=== PATIENT | female | born 1980 | race Caucasian/White ===

== ENCOUNTER 2022-07-09 14:11 | Outpatient (CLI) | payer OTHER, SELFPAY ==
[2022-07-09 23:06] LABS: HIV 1/2/P24 Combo Screen* Negative (Negative)
[2022-07-09 23:11] LABS: Hepatitis C Virus Antibody* Negative (Negative)
[2022-07-09 23:40] LABS: Chlamydia DNA Amplified* NOT DETECTED (No Detected); GC DNA Amplified* NOT DETECTED (No Detected)
[2022-07-11 20:36] LABS: Rapid Plasma Reagin (RPR) Non Reactive (Non Reactive)
== END 2022-07-09 14:12 | disposition home or self-care (01) ==
PROVIDERS: PCP Family Medicine; Visit Provider Family Medicine
DX: Z11.3 Encounter for screening for infections with a predominantly sexual mode of transmission (principal); Z11.59 Encounter for screening for other viral diseases
CPT/HCPCS: 86592; 86703; 86803; 87491; 87591

== ENCOUNTER 2022-12-15 07:04 | Outpatient (CLI) | payer OTHER, SELFPAY ==
--- NOTE | 2022-12-15 07:15 | CRLHL7_ITS ---
For Patients: As a result of the Century Cures Act, medical imaging exams and procedure reports are released immediately into your electronic medical record. You may view this report before your referring provider. If you have questions, please contact your health care provider. INDICATION: Cystic lesion pancreas; followup. Comparison: Ultrasound examination of the abdomen October 27, 2021; CT abdomen and pelvis November 12, 2021; MRCP and MR of the abdomen November 27, 2021. TECHNIQUE: MRCP; precontrast T1 and T2 weighted imaging; T2 haste imaging; diffusion weighted imaging; in and out of phase imaging; postcontrast imaging including subtraction. 15 cc of Dotarem contrast was injected FINDINGS: A 3 mm cystic lesion tail of the pancreas slice 19 series 6. No evidence of pancreatic ductal dilatation. No peripancreatic inflammatory changes. Gallbladder is unremarkable. A 1.9 cm cavernous hemangioma at the junction of segments 4 and 8 of the liver slice 21 series 14; stable. No focal hepatic or splenic pathology. No adrenal pathology. Kidneys are unremarkable. IMPRESSION: 1. A 1.9 cm cavernous hemangioma right hepatic lobe; stable. 2. 3 mm cystic lesion tail of the pancreas; rule out side branch IPMN; stable when compared to November 2021; followup MRCP and MRI of the abdomen and 2 years duration suggested. Dictated by John Figueroa MD @ 12/19/2022 2:14:48 PM (Electronically Signed)
== END 2022-12-15 07:05 | disposition home or self-care (01) ==
LOC: MRI 07:05
PROVIDERS: PCP Family Medicine; Visit Provider Surgery
DX: D49.0 Neoplasm of unspecified behavior of digestive system (principal); K86.2 Cyst of pancreas; D18.09 Hemangioma of other sites
CPT/HCPCS: 74183; A9575

== ENCOUNTER 2023-06-02 15:41 | Outpatient (CLI) | payer OTHER, SELFPAY ==
--- NOTE | 2023-06-02 16:00 | CRLHL7_ITS ---
For Patients: As a result of the Century Cures Act, medical imaging exams and procedure reports are released immediately into your electronic medical record. You may view this report before your referring provider. If you have questions, please contact your health care provider. INDICATION: POSTCOITAL BLEEDING AND CONTACT BLEEDING COMPARISON: none TECHNIQUE: 2D rich scale and color Doppler images were acquired of the pelvis using a transabdominal and transvaginal approach. FINDINGS: Sonographic images demonstrate a normal size and smooth outer contour of the uterus. Uterus measures 7.3 cm in length by 2.6 cm in AP diameter by 4.1 cm in transverse dimension. The myometrium has a normal uniform echotexture. Intrauterine device is present in good position within the endometrial canal. The right ovary measures 3.5 x 1.8 x 2.3 cm in size and the left ovary measures 2.9 x 1.7 x 1.2 cm. The ovaries demonstrate normal arterial and venous blood flow on color Doppler analysis. There are no suspicious fluid collections within the cul-de-sac. Simple right ovarian cyst is present measuring 2.5 x 2.0 x 2.1 cm. IMPRESSION: Normal position of the IUD. Incidental simple right ovarian cyst measuring 2.5 cm. No uterine fibroid. Dictated by Kyler Bautista MD @ 06/03/2023 8:53:04 AM (Electronically Signed)
== END 2023-06-02 15:42 | disposition home or self-care (01) ==
LOC: US 15:43
PROVIDERS: PCP Family Medicine; Visit Provider Advanced Practice Midwife
DX: N93.0 Postcoital and contact bleeding (principal)
CPT/HCPCS: 76830; 76856

== ENCOUNTER 2023-09-02 08:11 | Outpatient (CLI) | payer OTHER, SELFPAY ==
--- NOTE | 2023-09-02 08:15 | CRLHL7_ITS ---
For Patients: As a result of the Century Cures Act, medical imaging exams and procedure reports are released immediately into your electronic medical record. You may view this report before your referring provider. If you have questions, please contact your health care provider. BILATERAL SCREENING MAMMOGRAM WITH COMPUTER-AIDED DETECTION AND TOMOSYNTHESIS TECHNIQUE: CC and MLO views were obtained. These mammographic images have been obtained using full-field digital technique. These mammographic images were interpreted with the benefit of computer-aided detection. Breast Tomosynthesis was used in this interpretation. COMPARISON FILM: 09/08/20. FINDINGS: The breasts are heterogeneously dense, which may obscure small masses IMPRESSION: There is no radiographic evidence for malignancy. ASSESSMENT: BI-RADS Category 1: Negative RECOMMENDATION: Routine screening mammogram in 1 year. A lay language report of this examination will be provided to the patient. Kyler Bautsita M.D. Diagnostic Radiologist [email or web address] Transcribed: 4:37 p.mLiam wong/Dictated by: Kyler Bautista MD @ 09/07/2023 12:17:00 PM (Electronically Signed)
== END 2023-09-02 08:12 | disposition home or self-care (01) ==
LOC: MAMMO 08:12
PROVIDERS: PCP Family Medicine; Visit Provider Advanced Practice Midwife
DX: Z12.31 Encounter for screening mammogram for malignant neoplasm of breast (principal); R92.2 Inconclusive mammogram
CPT/HCPCS: 77063; 77067

== ENCOUNTER 2023-10-06 15:21 | Outpatient (CLI) | payer OTHER, SELFPAY | END 2023-10-06 15:22 | disposition home or self-care (01) | PROVIDERS: PCP Family Medicine; Visit Provider Family Medicine | DX: R63.1 Polydipsia (principal); R53.83 Other fatigue; E78.2 Mixed hyperlipidemia | CPT/HCPCS: 80053; 80061; 84443 ==

== ENCOUNTER 2024-09-20 13:08 | Outpatient (CLI) | payer OTHER, SELFPAY | END 2024-09-20 13:09 | disposition home or self-care (01) | PROVIDERS: PCP Family Medicine; Visit Provider Family Medicine | DX: E78.5 Hyperlipidemia, unspecified (principal); F41.9 Anxiety disorder, unspecified | CPT/HCPCS: 80053; 80061; 84443 ==

== ENCOUNTER 2025-01-02 11:19 | Outpatient (CLI) | payer OTHER, SELFPAY ==
--- NOTE | 2025-01-02 11:30 | CRLHL7_ITS ---
For Patients: As a result of the Century Cures Act, medical imaging exams and procedure reports are released immediately into your electronic medical record. You may view this report before your referring provider. If you have questions, please contact your health care provider. INDICATION: BILATERAL SCREENING MAMMOGRAM, ASYMPTOMATIC 44 Y/O FEMALE COMPARISON: 09/02/2023, 09/08/2020 TECHNIQUE: Digital mammogram in CC and MLO projections including computer-aided detection (CAD) and tomosynthesis. BREAST COMPOSITION: The breasts are heterogeneously dense, which may obscure small masses. FINDINGS: No suspicious findings. ASSESSMENT: BI-RADS 1 Negative RECOMMENDATION: Annual screening mammogram. A lay language report of this examination will be provided to the patient. Dictated by: Kyler Bautista MD @ 01/02/2025 11:44:09 (Electronically Signed)
== END 2025-01-02 11:20 | disposition home or self-care (01) ==
LOC: MAMMO 11:20
PROVIDERS: PCP Family Medicine; Visit Provider Family Medicine
DX: Z12.31 Encounter for screening mammogram for malignant neoplasm of breast (principal); R92.333 Mammographic heterogeneous density, bilateral breasts
CPT/HCPCS: 77063; 77067

== ENCOUNTER 2025-02-05 08:13 | Outpatient (CLI) | payer OTHER, SELFPAY ==
--- NOTE | 2025-02-05 08:15 | CRLHL7_ITS ---
For Patients: As a result of the Century Cures Act, medical imaging exams and procedure reports are released immediately into your electronic medical record. You may view this report before your referring provider. If you have questions, please contact your health care provider. INDICATION: Pancreatic cysts. COMPARISON: Abdominal MRIs dated 15 December 2022 and 27 November 2021. TECHNIQUE: Abdominal MRI with T1 in- and out of phase, T2, diffusion weighted, and progressively delayed post-contrast images. Intravenous gadolinium administered. Heavily T2 weighted 2D and 3D MRCP images. FINDINGS: No fatty infiltration of the liver. 1.9 cm hemangioma in segment 8 of the liver is unchanged. A few other small probable hemangiomas in the right lobe of the liver measuring up to 7 mm are unchanged. No other focal abnormalities identified in visualized portions of the liver, spleen, adrenal glands, and kidneys. No hydronephrosis. No adenopathy. 3 mm cyst in the tail of the pancreas best seen on image 19 of series 6 is unchanged. The pancreas is otherwise unremarkable. No intra or extrahepatic bile duct dilation with the common bile duct measuring 4 mm. No filling defects in the biliary system. Normal size of the main pancreatic duct. Gallstones filling a contracted gallbladder. Impression : 1. 3 mm cyst in the tail of the pancreas is unchanged. Recommend follow-up MRI in 2 years to continue documentation of stability. 2. Probable hemangiomas in the liver are unchanged. 3. Gallstones filling a contracted gallbladder. 4. No bile duct dilation. No choledocholithiasis. Normal size of the main pancreatic duct. Management of Incidental Pancreatic Cysts: A White Paper of the ACR Incidental Findings Committee. Journal of the [employer]. Volume 14, Number 7, February 2017, pages [phone]. Dictated by Speedy Jackson MD @ 02/07/2025 8:58:19 AM (Electronically Signed)
== END 2025-02-05 08:14 | disposition home or self-care (01) ==
LOC: MRI 08:14
PROVIDERS: PCP Family Medicine; Visit Provider Surgery
DX: K86.2 Cyst of pancreas (principal); D49.0 Neoplasm of unspecified behavior of digestive system; K80.20 Calculus of gallbladder without cholecystitis without obstruction
CPT/HCPCS: 74183; A9575